=== PATIENT | male | born 1985 | race Caucasian/White ===

== ENCOUNTER 2017-11-20 13:16 | Emergency (ER) | payer MEDICAID ==
--- NOTE | 2017-11-20 13:57 | EDPHY ---
H & P Stated Complaint: SYMPTOMS, ABD PAIN, URINARY RETENTION Source: Patient, Old records Exam Limitations: Other - Personal History Current Tetanus Diphtheria and Acellular Pertussis (TDAP): Yes - Medical/Surgical History Other PMH: AUTISM, ASBERGERS, OCD,DEPRESSION, HEP C, SCAPHOID FX, O2 - Social History Smoking Status: Current every day smoker Time Seen by Provider: 11/20/17 13:50 HPI/ROS: HPI: This is a 32-year-old male who presents with Chief Complaint: SYMPTOMS, ABD PAIN, URINARY RETENTION Location: Left upper quadrant left lower quadrant Quality: Pain Duration: 3 hr prior to arrival Signs and Symptoms: no fever, no nausea, no vomiting, no hematemesis, no blood in stool, no abdominal bloating, no diarrhea, no back pain, no urinary symptoms , no testicular/groin pain, no indigestion, no chest pain, no shortness of breath Timing: Acute Severity: Severe Context: Patient has a history of autism and Asperger's with chronic use of Geodon and opiate medications presents with his attendant complaints of not urinating since 11:00 p.m. Yesterday evening as well as left upper quadrant left lower quadrant sudden onset of nonradiating moderate pain that started approximately 3 hr prior to arrival. Patient ate breakfast and lunch today without any difficulty. Denies fever/diarrhea/blood in stool/hematemesis/ dysuria/hematuria. Patient reports that he has a history of urinary retention but never followed up with Urology as patient only request female provider. Take stool softeners daily due to history of chronic constipation. History hemorrhoids. Patient reports that he was seen in the emergency room for acute urinary retention and given antibiotics that he only completed for a few days as it made him "sick." Patient reports that chronic use of Geodon has caused weight fluctuations. Modifying Factors: None Comment: ROS: see HPI Constitutional: No fever, no chills, no weight loss Eyes: No blurred vision Respiratory: No shortness of breath, no cough Cardiovascular: No chest pain, no palpitations Gastrointestinal: No nausea, no vomiting, no diarrhea, no hematemesis, no blood in stool Genitourinary: No dysuria, no blood in urine Extremities: No myalgias, no edema Neurologic: No weakness, no numbness Skin: No rashes, no petechiae Hematologic: No bruising, no bleeding MEDICAL/SURGICAL/SOCIAL HISTORY: Medical history: AUTISM, ASPERGER, OCD, DEPRESSION, HEP C, SCAPHOID FX, O2 Surgical history: Cholecystectomy Social history: Lives in [facility]. CONSTITUTIONAL: Extremely well-appearing polite and cooperative middle-aged white male, awake and alert, no obvious distress HEENT: Atraumatic and normocephalic, PERRL, EOMI. Tympanic membranes clear. Oropharynx clear, no exudate and moist pink mucosa. Airway patent. No lymphadenopathy. No meningismus. Cardiovascular: Normal S1/S2, regular rate, regular rhythm, without murmur rub or gallop. PULMONARY/CHEST: Symmetrical and nontender. Clear to auscultation bilaterally. Good air movement. No accessory muscle usage. ABDOMEN: Soft, protuberant, hypoactive bowel sounds heard x4 quadrants, nondistended, mild left upper quadrant mild left lower quadrant tenderness, no rebound, no guarding, no peritoneal signs, no masses or organomegaly. No CVAT. Male : circumcised penis, bilateral descended testes, no testicular swelling, no testicular masses, no penile discharge, no lesions, negative Prehn's sign. EXTREMITIES: 2/2 pulses, strength 5/5, no deformities, no clubbing, no cyanosis or edema. NEUROLOGICAL: no focal neuro deficits. GCS 15. SKIN: Warm and dry, no erythema. no rash. Good capillary refill. (Shantelle Thorne) Constitutional: Initial Vital Signs Temperature (C) 36.5 C 11/20/17 13:27 Heart Rate 92 11/20/17 13:27 Respiratory Rate 16 11/20/17 13:27 Blood Pressure 116/65 11/20/17 13:27 O2 Sat (%) 94 11/20/17 13:27 O2 Delivery Mode Room Air O2 (L/minute) 2 Allergies/Adverse Reactions: ciprofloxacin [From Cipro] Allergy (Verified 11/20/17 13:24) haloperidol [From Haldol] Allergy (Verified 11/20/17 13:24) linaclotide [From Linzess] Allergy (Verified 11/20/17 13:24) olanzapine [From Zyprexa] Allergy (Verified 11/20/17 13:24) ALLL NEW ANTIPSYCHOTICS Allergy (Uncoded 11/20/17 13:24) Home Medications: Medication Instructions Recorded Aleve 11/20/17 Cbd 11/20/17 Citalopram 11/20/17 Diazepam 11/20/17 Flexeril 10 MG (*) 11/20/17 Flomax 11/20/17 Geodon 11/20/17 Oxycodone Ir (*) 11/20/17 Protonix 11/20/17 Temazepam 11/20/17 Wellbutrin Sr 11/20/17 Medical Decision Making - Diagnostics Imaging Results: Imaging Impressions Abdomen CT 11/20/17 14:05 Impression: 1. Left inguinal peritoneal fat hernia. 2. Otherwise unremarkable. Results discussed with Shantelle Thorne. General information for patients regarding this examination can be found at [email or web address]. If you have questions or comments about this report, please contact me at (hospital) or [phone] (cell). ED Course/Re-evaluation: Labs, IV fluids, bladder scan, Pineda catheter, CT abdomen and pelvis scan ordered Vital signs reviewed and stable upon arrival Bladder scan shows greater than 500 cc; indwelling Pineda catheter inserted with immediate clear urine without sediment returned 1440: Notified by nursing that patient now complaining of continued abdominal pain and requesting pain medications. IV morphine 4 mg ordered Urinalysis reviewed and shows no signs infection, hematuria with normal specific gravity 1500: Labs reviewed; grossly unremarkable including Creatinine 0.9 1540: End of Shift. Signed over to Dr. Gallardo pending CT A/P scan results and final disposition. This patient was seen under the supervision of my secondary supervising physician. I evaluated care for this patient independently. Discussed this patient with Dr. Gallardo who did not see the patient. (Shantelle Thorne) This patient was seen and examined by me. Abd exam is benign. CT scan results are unremarkable, except for constipation, and were discussed with the patient and his caregiver. Magnesium citrate given. Will f/u PCP and urology. (Khadijah Gallardo) Differential Diagnosis: Abdominal pain including but not limited to appendicitis, cholecystitis, gastritis and urinary tract infection. (Shantelle Thorne) - Data Points Laboratory Results: Laboratory Results 11/20/17 14:20 11/20/17 14:20 11/20/17 11/20/17 11/20/17 14:20 14:20 14:08 WBC 7.40 10^3/uL 10^3/uL (3.80-9.50) RBC 5.05 10^6/uL 10^6/uL (4.40-6.38) Hgb 13.0 g/dL L g/dL (13.7-17.5) Hct 40.5 % % (40.0-51.0) MCV 80.2 fL L fL (81.5-99.8) MCH 25.7 pg L pg (27.9-34.1) MCHC 32.1 g/dL L g/dL (32.4-36.7) RDW 14.4 % % (11.5-15.2) Plt Count 283 10^3/uL 10^3/uL (150-400) MPV 9.4 fL fL (8.7-11.7) Neut % (Auto) 62.3 % % (39.3-74.2) Lymph % (Auto) 27.2 % % (15.0-45.0) Divide % (Auto) 8.1 % % (4.5-13.0) Eos % (Auto) 1.4 % % (0.6-7.6) Baso % (Auto) 0.5 % % (0.3-1.7) Nucleat RBC Rel Count 0.0 % % (0.0-0.2) Absolute Neuts (auto) 4.61 10^3/uL 10^3/uL (1.70-6.50) Absolute Lymphs (auto) 2.01 10^3/uL 10^3/uL (1.00-3.00) Absolute Monos (auto) 0.60 10^3/uL 10^3/uL (0.30-0.80) Absolute Eos (auto) 0.10 10^3/uL 10^3/uL (0.03-0.40) Absolute Basos (auto) 0.04 10^3/uL 10^3/uL (0.02-0.10) Absolute Nucleated RBC 0.00 10^3/uL 10^3/uL (0-0.01) Immature Gran % 0.5 % % (0.0-1.1) Immature Gran # 0.04 10^3/uL 10^3/uL (0.00-0.10) Sodium 140 mEq/L mEq/L (135-145) Potassium 4.5 mEq/L mEq/L (3.5-5.2) Chloride 103 mEq/L mEq/L (97-110) Carbon Dioxide 23 mEq/l mEq/l (22-31) Anion Gap 14 mEq/L mEq/L (8-16) BUN 10 mg/dL mg/dL (7-23) Creatinine 0.9 mg/dL mg/dL (0.7-1.3) Estimated GFR > 60 Glucose 80 mg/dL mg/dL (70-100) Calcium 9.1 mg/dL mg/dL (8.5-10.4) Total Bilirubin 0.5 mg/dL mg/dL (0.1-1.4) Conjugated Bilirubin 0.3 mg/dL mg/dL (0.0-0.5) Unconjugated Bilirubin 0.2 mg/dL mg/dL (0.0-1.1) AST 34 IU/L IU/L (17-59) ALT 62 IU/L IU/L (21-72) Alkaline Phosphatase 68 IU/L IU/L (38-126) Total Protein 7.6 g/dL g/dL (6.3-8.2) Albumin 4.4 g/dL g/dL (3.5-5.0) Lipase 66 IU/L IU/L (23-300) Urine Color COLORLESS Urine Appearance CLEAR Urine pH 7.0 (5.0-7.5) Ur Specific [place] 1.002 (1.002-1.030) Urine Protein NEGATIVE (NEGATIVE) Urine Ketones NEGATIVE (NEGATIVE) Urine Blood NEGATIVE (NEGATIVE) Urine Nitrate NEGATIVE (NEGATIVE) Urine Bilirubin NEGATIVE (NEGATIVE) Urine Urobilinogen NEGATIVE EU EU (0.2-1.0) Ur Leukocyte Esterase NEGATIVE (NEGATIVE) Urine Glucose NEGATIVE (NEGATIVE) Medications Given: Discontinued Medications Sodium Chloride (Ns) 1,000 mls @ 0 mls/hr IV EDNOW ONE; Wide Open PRN Reason: Protocol Stop: 11/20/17 14:06 Last Admin: 11/20/17 14:25 Dose: 1,000 mls Lidocaine (Uroject Lidocaine 2% Jelly) 20 ml UR EDNOW ONE Stop: 11/20/17 14:27 Last Admin: 11/20/17 14:30 Dose: 20 ml Morphine Sulfate (Morphine) 4 mg IVP EDNOW ONE Stop: 11/20/17 14:47 Last Admin: 11/20/17 15:12 Dose: 4 mg Departure - Departure Disposition: Home, Routine, Self-Care Clinical Impression: Acute urinary retention Constipation Qualifiers: Constipation type: drug induced constipation Qualified Code(s): K59.03 - Drug induced constipation Instructions: Magnesium Citrate (By mouth), Urinary Retention in Men (ED), Pineda Catheter Placement and Care (ED) Additional Instructions: Call Urology, Dr. Latoya Dutton, on Thursday for a follow-up appointment next week. Follow Pineda catheter precautions and care. Consume a minimum of 8-10 glasses of water or electrolyte fluid replacement drinks that include Gatorade, Powerade, Pedialyte. Eat a bland diet for the next 48 hours and then slowly advance as tolerated. Return to the ER immediately if you experience new, continued or worsening abdominal pain, fevers/chills, inability to tolerate oral intake, new pain, or any other symptoms that concern you. Referrals: Latoya Dutton MD [Medical Doctor] -
[2017-11-20] MEDS ORDERED: LIDOCAINE 2% JELLY 20 ML (UROJECT) ONE (14:00)
[2017-11-20] MEDS ORDERED: NS 1,000 ML IV ONE (14:05)
[2017-11-20] MEDS ORDERED: LIDOCAINE 2% JELLY 20 ML (UROJECT) UR ONE (14:26)
[2017-11-20 14:39] LABS: PLATELET COUNT 283 10^3/uL (150-400)
[2017-11-20] MEDS ORDERED: IOPAMIDOL (ISOVUE-300) 100 ML BTL ONE (15:15)
[2017-11-20] MEDS ORDERED: MAGNESIUM CITRATE 300 ML BOTTLE PO ONE (15:57)
[2017-11-20 16:10] VITALS: BP 147/106; PULSE 109; RESP 20; TEMP 98.6; O2SAT 95
== END 2017-11-20 16:13 | disposition home or self-care (01) ==
DX: K59.03 Drug induced constipation (principal); R33.9 Retention of urine, unspecified; T43.595A Adverse effect of other antipsychotics and neuroleptics, initial encounter; F17.200 Nicotine dependence, unspecified, uncomplicated; E86.9 Volume depletion, unspecified; Z90.49 Acquired absence of other specified parts of digestive tract
CPT/HCPCS: 96374; J2270; Q9967

== ENCOUNTER 2017-12-10 18:32 | Emergency (ER) | payer MEDICAID ==
[2017-12-10] MEDS ORDERED: KETAMINE 200 MG/20 ML VIAL IVP ONE ×2 (19:22→20:55)
--- NOTE | 2017-12-10 19:29 | EDPHY ---
H & P Stated Complaint: RUQ ABD PAIN/HX HEP C SEEN AT [facility] THEY FELT WAS R/T THC/ SO PT CAME HER Time Seen by Provider: 12/10/17 19:15 HPI/ROS: CHIEF COMPLAINT: Liver pain HISTORY OF PRESENT ILLNESS: Patient is a 32-year-old obese man with severe Asperger's who comes with his partner who cells CBD while to him stating that his liver is hurting. He states that this happens intermittently. CBD while is not working. He threw up the Phenergan he has at home. He was just at [facility] where he was given Reglan and Zofran and when he told mm not working they told him they thought that he had cannabis hyperemesis. He then got up and left and came here. He has not had a fever. No diarrhea. He has history of cholecystectomy. He was here 2 weeks ago with abdominal pain at that time had a CT scan that was unremarkable except for constipation and was given magnesium citrate. REVIEW OF SYSTEMS: Constitutional: denies: chills, fever, recent illness, recent injury EENTM: denies: blurred vision, double vision, nose congestion Respiratory: denies: cough, shortness of breath Cardiac: denies: chest pain, irregular heart rate, lightheadedness, palpitations Gastrointestinal/Abdominal: See HPI Genitourinary: denies: dysuria, frequency, hematuria, pain Musculoskeletal: denies: joint pain, muscle pain Skin: denies: lesions, rash, jaundice, bruising Neurological: denies: headache, numbness, paresthesia, tingling, dizziness, weakness Hematologic/Lymphatic: denies: blood clots, easy bleeding, easy bruising Immunologic/allergic: denies: HIV/AIDS, transplant EXAM: GENERAL: Obese, moderate distress. HEAD: Atraumatic, normocephalic. EYES: Pupils equal round and reactive to light, extraocular movements intact, sclera anicteric, conjunctiva are normal. ENT: TMs normal, nares patent, oropharynx clear without exudates. Moist mucous membranes. NECK: Normal range of motion, supple without lymphadenopathy or JVD. LUNGS: Breath sounds clear to auscultation bilaterally and equal. No wheezes rales or rhonchi. HEART: Regular rate and rhythm without murmurs, rubs or gallops. ABDOMEN: no tenderness, normoactive bowel sounds. No guarding, no rebound. No masses appreciated. BACK: No CVA tenderness, no spinal tenderness, step-offs or deformities EXTREMITIES: Normal range of motion, no pitting or edema. No clubbing or cyanosis. NEUROLOGICAL: Cranial nerves II through XII grossly intact. Normal speech, normal gait. 5/5 strength, normal movement in all extremities, normal sensation PSYCH: Normal mood, normal affect. SKIN: Warm, dry, normal turgor, no visible rashes or lesions. Source: Patient Exam Limitations: No limitations - Personal History Current Tetanus/Diphtheria Vaccine: Yes - Medical/Surgical History Hx Asthma: No Hx Chronic Respiratory Disease: No Hx Diabetes: No Hx Cardiac Disease: No Hx Renal Disease: Yes Hx Cirrhosis: No Hx Alcoholism: No Hx HIV/AIDS: No Hx Splenectomy or Spleen Trauma: No Other PMH: AUTISM, ASBERGERS, OCD,DEPRESSION, HEP C, SCAPHOID FX, O2 - Family History Significant Family History: No pertinent family hx - Social History Smoking Status: Current every day smoker Alcohol Use: None Constitutional: Initial Vital Signs Temperature (C) 37.1 C 12/10/17 18:47 Heart Rate 85 12/10/17 18:47 Respiratory Rate 17 12/10/17 18:47 Blood Pressure 139/83 H 12/10/17 18:47 O2 Sat (%) 93 12/10/17 18:47 O2 Delivery Mode Room Air Allergies/Adverse Reactions: haloperidol [From Haldol] Allergy (Verified 11/20/17 13:24) linaclotide [From Linzess] Allergy (Verified 11/20/17 13:24) olanzapine [From Zyprexa] Allergy (Verified 11/20/17 13:24) ALLL NEW ANTIPSYCHOTICS Allergy (Uncoded 11/20/17 13:24) CIPROHEPTADINE Allergy (Uncoded 12/10/17 18:45) Home Medications: Medication Instructions Recorded Aleve 11/20/17 Cbd 11/20/17 Citalopram 11/20/17 Diazepam 11/20/17 Flexeril 10 MG (*) 11/20/17 Flomax 11/20/17 Geodon 11/20/17 Oxycodone Ir (*) 11/20/17 Protonix 11/20/17 Temazepam 11/20/17 Wellbutrin Sr 11/20/17 Ativan 12/10/17 Citalopram 12/10/17 Compazine 10mg (*) 12/10/17 Phenergan 12/10/17 Zofran 12/10/17 Medical Decision Making ED Course/Re-evaluation: A few minutes after I left the room the patient began screaming and calling out for nurse. We all into the room and he began crying could not talk. His partner states that he is frustrated because he has not yet received pain medication. I have ordered ketamine but we discussed the fact that I will not give him narcotics because we are no narcotic ED. 7:50 p.m. the patient responded very well to the ketamine. He feels completely better. His partner came to the desk and thanked me. We will continue to observe to see if he needs repeat dosing. Ketamine is currently under shortage but this seemed to be a strong indication. He states that he refuses to take any psychiatric type medications. 8:35 p.m. the patient is still feeling better but is asking for catheter. He typically self caths. 8:55 p.m. The patient would like to go home. We will give him another dose of ketamine prior to leaving and observed. He has anti nausea and pain medication at home. Abdominal exam remains benign. Differential Diagnosis: Partial list of the Differential diagnosis considered include but were not limited to; chronic abdominal pain, hepatitis, cyclic vomiting, Asperger's syndrome, cannabis hyperemesis, drug-seeking and although unlikely based on the history and physical exam, I also considered ischemia, appendicitis. - Data Points Medications Given: Discontinued Medications Ketamine HCl (Ketamine) 24.5 mg 0.2 mg/kg (24.5 mg) IVP EDNOW ONE Stop: 12/10/17 19:23 Last Admin: 12/10/17 19:37 Dose: 24.5 mg Ketamine HCl (Ketamine) 24.5 mg 0.2 mg/kg (24.5 mg) IVP EDNOW ONE Stop: 12/10/17 20:56 Last Admin: 12/10/17 20:57 Dose: 24.5 mg Departure - Departure Disposition: Home, Routine, Self-Care Clinical Impression: Abdominal pain Qualifiers: Abdominal location: generalized Qualified Code(s): R10.84 - Generalized abdominal pain Condition: Fair Instructions: Acute Abdominal Pain (ED) Referrals: JEFFREY STEPHENSON [Other] - As per Instructions
[2017-12-10 21:04] VITALS: BP 128/77
== END 2017-12-10 21:03 | disposition home or self-care (01) ==
DX: R10.84 Generalized abdominal pain (principal); F17.200 Nicotine dependence, unspecified, uncomplicated
CPT/HCPCS: 96374

== ENCOUNTER 2018-01-20 18:24 | Emergency (ER) | payer MEDICAID ==
--- NOTE | 2018-01-20 18:45 | EDPHY ---
HPI/HX/ROS/PE/MDM Narrative: CHIEF COMPLAINT: Abdominal pain, nausea, vomiting HISTORY OF PRESENT ILLNESS: The patient is a 32 y/o male with a history of autism and hepatitis C complaining of abdominal pain, nausea, vomiting, and diarrhea. Around 1 month ago he had ARF secondary to obstruction, and now patient performs a self cathetization as needed. About a week ago he developed "kidney and liver pain". The liver pain is mildly alleviated by lying on his stomach. Around 3 days ago he began to have difficulty with the self catheter described as meeting resistance in the mid urethra. After self caths, his partner noticed blood on the end of the catheter as well as dark urine present. 3 days ago he also began to vomit around 3 times a day, which was mildly alleviated with Phenergan. His partner reports that the patient has had loose, dark stools with bright red blood present. He last received Tylenol 5 days ago in addition to his normal pain medications. No fever, chills, chest pain, shortness of breath, palpitations, headache, lightheadedness. REVIEW OF SYSTEMS: Aside from elements discussed in the HPI, a comprehensive 10-point review of systems was reviewed and is negative. PAST MEDICAL HISTORY: Autism, hepatitis C, dyspepsia, hemorrhoids, depression, OCD, scaphoid fracture SOCIAL HISTORY: Partner at bedside, lives in [place], admits to tobacco use VITAL SIGNS: Reviewed by me GENERAL: Lying with headphones on, well-developed, well-nourished, no respiratory distress. HEENT: Atraumatic. Eyes: No icterus, no injection. Mouth: moist mucous membranes. No erythema or lesions. Neck: supple with no adenopathy. LUNGS: Clear to auscultation bilaterally, no wheezes, rhonchi or rales. CARDIAC: Regular rate and rhythm, no rubs, murmurs or gallops. ABDOMEN: Right upper and mid quadrant tenderness. No palpable bladder. Soft, nondistended, bowel sounds normal. RECTAL: No hemorrhoids present. No stool present. BACK: Right CVA tenderness. EXTREMITIES: No trauma. No edema. Range of motion is normal throughout. NEURO: Alert and oriented, grossly nonfocal. SKIN: Warm and diaphoretic, no rash. PSYCHIATRIC: Normal mentation, no agitation. Portions of this note were transcribed by a manager of medical. I personally performed a history, physical exam, medical decision making, and confirmed accuracy of information the transcribed note. ED Course: The patient is a 32 y/o male with a history of autism and hepatitis C presenting with abdominal pain, nausea, vomiting, and diarrhea. He has also had difficulty with his self catheter for the past 3 days. On exam he has right upper and mid abdominal tenderness as well as right flank tenderness. Labs ordered and 1L IV NS administered. 1925: Patient is still in pain, 75mcg IV Fentanyl administered. 2008: Patient's pain has still not improved, 0.5mg IV Dilaudid administered. 2024: Patient's labs are essentially normal. No renal failure, no elevation in LFTs, urine without infection. Pineda cather placed without difficulty in ED. He is nauseous now; 12.5mg IV Phenergan administered. 2036: Reassessed patient and discussed follow up with gastroenterology and urology. I have prescribed him Flomax. Return precautions provided; patient is comfortable with this plan. MDM: Diff dx considered includind BPH, prostatits, urethritis, UTI, ARF, hepatitis, CI hemorrhage. - Data Points Laboratory Results: Laboratory Results 01/20/18 18:55 01/20/18 18:55 Medications Given: Discontinued Medications Fentanyl (Sublimaze) 75 mcg IVP EDNOW ONE Stop: 01/20/18 19:26 Last Admin: 01/20/18 19:33 Dose: 75 mcg Hydromorphone HCl (Dilaudid) 0.5 mg IVP EDNOW ONE Stop: 01/20/18 20:12 Last Admin: 01/20/18 20:15 Dose: 0.5 mg Sodium Chloride (Ns) 1,000 mls @ 0 mls/hr IV ONCE ONE; Wide Open PRN Reason: Protocol Stop: 01/20/18 19:03 Last Admin: 01/20/18 19:15 Dose: 1,000 mls Promethazine HCl (Phenergan) 12.5 mg IVP ONCE ONE Stop: 01/20/18 20:29 Last Admin: 01/20/18 20:32 Dose: 12.5 mg Promethazine HCl (Phenergan) 12.5 mg IVP EDNOW ONE Stop: 01/20/18 20:28 Last Admin: 01/20/18 20:35 Dose: Not Given General Time Seen by Provider: 01/20/18 18:42 Initial Vital Signs: Initial Vital Signs Temperature (C) 36.3 C 01/20/18 18:37 Heart Rate 82 01/20/18 18:37 Respiratory Rate 18 01/20/18 18:37 Blood Pressure 151/108 H 01/20/18 18:37 O2 Sat (%) 93 01/20/18 18:37 O2 Delivery Mode Room Air Allergies/Adverse Reactions: haloperidol [From Haldol] Allergy (Verified 01/21/18 06:48) ketamine Allergy (Verified 01/21/18 07:42) linaclotide [From Linzess] Allergy (Verified 01/21/18 06:48) olanzapine [From Zyprexa] Allergy (Verified 01/21/18 06:48) ALLL NEW ANTIPSYCHOTICS Allergy (Uncoded 01/21/18 06:48) CIPROHEPTADINE Allergy (Uncoded 01/21/18 06:48) Home Medications: Medication Instructions Recorded Aleve 11/20/17 Cbd 11/20/17 Citalopram 11/20/17 Diazepam 11/20/17 Flexeril 10 MG (*) 11/20/17 Geodon 11/20/17 Oxycodone Ir (*) 11/20/17 Protonix 11/20/17 Temazepam 11/20/17 Wellbutrin Sr 11/20/17 Ativan 12/10/17 Citalopram 12/10/17 Compazine 10mg (*) 12/10/17 Phenergan 12/10/17 Zofran 12/10/17 Departure - Departure Disposition: Home, Routine, Self-Care Clinical Impression: Abdominal pain Qualifiers: Abdominal location: right upper quadrant Qualified Code(s): R10.11 - Right upper quadrant pain Condition: Good Instructions: Acute Abdominal Pain (ED) Additional Instructions: Take Flomax as prescribed. Follow up with your resident care technician. Follow up with urology (Dr. Dutton) in the next week. Return to the emergency apartment for fever, severe pain, inability to urinate or other concerns. Referrals: JEFFREY STEPHENSON [Other] - As per Instructions Fanta Shell MD [Medical Doctor] - As per Instructions Latoya Dutton MD [Medical Doctor] - As per Instructions
[2018-01-20] MEDS ORDERED: NS 1,000 ML IV ONE (19:02)
[2018-01-20 19:12] LABS: PLATELET COUNT 364 10^3/uL (150-400)
[2018-01-20 19:20] LABS: INR 0.93 (0.83-1.16); PROTIME(PATIENT) 12.7 SEC (12.0-15.0)
[2018-01-20] MEDS ORDERED: fentaNYL 100 MCG/2 ML INJ IVP ONE (19:25)
[2018-01-20 19:39] LABS: CREATINE KINASE 45 IU/L (0-224)
[2018-01-20] MEDS ORDERED: HYDROmorphONE/DILAUDID 2 MG/ML INJ IVP ONE (20:11)
[2018-01-20] MEDS ORDERED: HYDROmorphONE/DILAUDID 1 MG/ML INJ ONE (20:14)
[2018-01-20] MEDS ORDERED: PROMETHAZINE HCL 25 MG/ML INJ IVP ONE ×2 (20:27→20:28)
[2018-01-20 20:54] VITALS: BP 150/78
== END 2018-01-20 21:00 | disposition home or self-care (01) ==
PROC: 0T9B70Z Drainage of Bladder with Drainage Device, Via Natural or Artificial Opening (ICD-10-PCS; principal; 2018-01-20)
DX: R33.9 Retention of urine, unspecified (principal); R10.11 Right upper quadrant pain; R11.2 Nausea with vomiting, unspecified; E86.9 Volume depletion, unspecified
CPT/HCPCS: 96374; J1170; J2550; J3010

== ENCOUNTER 2018-01-21 06:43 | Emergency (ER) | payer MEDICAID ==
[2018-01-21] MEDS ORDERED: NS 1,000 ML IV ONE (07:20)
[2018-01-21] MEDS ORDERED: PANTOPRAZOLE SODIUM 40 MG VIAL IVP ONE (07:20)
[2018-01-21] MEDS ORDERED: LORazepam 2 MG/ML INJ IVP ONE (07:20)
--- NOTE | 2018-01-21 07:20 | EDPHY ---
H & P Stated Complaint: abd pain and vomiting was seen yesterday Time Seen by Provider: 01/21/18 06:58 HPI/ROS: CHIEF COMPLAINT: Vomiting, abdominal pain HISTORY OF PRESENT ILLNESS: 32-year-old male with autism presents with recurrent vomiting and abdominal pain. He has a long history of episodic vomiting and abdominal pain, thought secondary to cyclic vomiting syndrome. Onset of typical symptoms yesterday, with recurrent vomiting and right upper quadrant pain. He was seen in this emergency department and given Dilaudid, Fentanyl and Phenergan IV with relief. He also has a h/o urinary retention and usually self caths at home. A salomon catheter was placed yesterday rui because of urinary retention. On the way home from the emergency department, he began vomiting again. He has been up all night with abdominal pain and vomiting. Associated with constipation and anxiety. Sometimes these episodes last for a few days, but typically last less than 24 hr. He has not taken his usual psychiatric medications in 2 days. Also unable to tolerate usual oxycodone because of vomiting. Requests d/c salomon catheter. REVIEW OF SYSTEMS: complete 10 point ROS negative except at noted in the HPI - Personal History Current Tetanus/Diphtheria Vaccine: Yes Current Tetanus Diphtheria and Acellular Pertussis (TDAP): Yes - Medical/Surgical History Hx Asthma: No Hx Chronic Respiratory Disease: No Hx Diabetes: No Hx Cardiac Disease: No Hx Renal Disease: Yes Hx Cirrhosis: No Hx Alcoholism: No Hx HIV/AIDS: No Hx Splenectomy or Spleen Trauma: No Other PMH: AUTISM, ASBERGERS, OCD,DEPRESSION, HEP C, SCAPHOID FX, O2 - Social History Smoking Status: Current every day smoker Alcohol Use: None Drug Use: None - Physical Exam Exam: General Appearance: Alert, anxious Eyes: Pupils equal and round, no conjunctival pallor or injection ENT, Mouth: Mucous membranes moist, excessive cerumen bilateral ear canals Neck: Normal inspection Respiratory: Lungs are clear to auscultation Cardiovascular: Regular rate and rhythm Gastrointestinal: Abdomen is soft, right upper quadrant tenderness Neurological: A&O, nonfocal exam Skin: Warm and dry Extremities: Normal inspection Psychiatric: anxious Constitutional: Initial Vital Signs Temperature (C) 37.2 C 01/21/18 06:45 Heart Rate 109 H 01/21/18 06:45 Respiratory Rate 16 01/21/18 06:45 Blood Pressure 145/75 H 01/21/18 06:45 O2 Sat (%) 91 L 01/21/18 06:45 O2 Delivery Mode Room Air Allergies/Adverse Reactions: haloperidol [From Haldol] Allergy (Verified 01/21/18 06:48) ketamine Allergy (Verified 01/21/18 07:42) linaclotide [From Linzess] Allergy (Verified 01/21/18 06:48) olanzapine [From Zyprexa] Allergy (Verified 01/21/18 06:48) ALLL NEW ANTIPSYCHOTICS Allergy (Uncoded 01/21/18 06:48) CIPROHEPTADINE Allergy (Uncoded 01/21/18 06:48) Home Medications: Medication Instructions Recorded Aleve 11/20/17 Cbd 11/20/17 Citalopram 11/20/17 Diazepam 11/20/17 Flexeril 10 MG (*) 11/20/17 Geodon 11/20/17 Oxycodone Ir (*) 11/20/17 Protonix 11/20/17 Temazepam 11/20/17 Wellbutrin Sr 11/20/17 Ativan 12/10/17 Citalopram 12/10/17 Compazine 10mg (*) 12/10/17 Phenergan 12/10/17 Zofran 12/10/17 Medical Decision Making ED Course/Re-evaluation: This patient presents with recurrent vomiting and abdominal pain. Clinical scenario consistent with cyclic vomiting syndrome. I do not suspect alternative etiology for his symptoms today. Ativan, Protonix and Phenergan IV given. He feels much better after these medications and nausea has resolved. However, he continues to have abdominal pain. Abdominal exam remains benign. Dilaudid 0.5 mg IV given. Asymptomatic after Dilaudid IV. Feels much better and wants to go home. Abdomen is soft and nontender. The Salomon catheter was removed at patient request. Abdominal pain precautions given. He will stay on a clear liquid diet today and gradually advance his diet as tolerated. Differential Diagnosis: Differential diagnosis includes though it is not limited to appendicitis, cholecystitis, diverticulitis, pyelonephritis, bowel perforation, small bowel obstruction. - Data Points Laboratory Results: Laboratory Results 01/21/18 07:30 01/21/18 07:30 01/21/18 01/21/18 07:30 07:30 WBC 15.52 10^3/uL H 10^3/uL (3.80-9.50) RBC 4.79 10^6/uL 10^6/uL (4.40-6.38) Hgb 12.3 g/dL L g/dL (13.7-17.5) Hct 37.5 % L % (40.0-51.0) MCV 78.3 fL L fL (81.5-99.8) MCH 25.7 pg L pg (27.9-34.1) MCHC 32.8 g/dL g/dL (32.4-36.7) RDW 14.6 % % (11.5-15.2) Plt Count 338 10^3/uL 10^3/uL (150-400) MPV 9.5 fL fL (8.7-11.7) Neut % (Auto) 84.6 % H % (39.3-74.2) Lymph % (Auto) 9.5 % L % (15.0-45.0) [place] % (Auto) 4.3 % L % (4.5-13.0) Eos % (Auto) 0.7 % % (0.6-7.6) Baso % (Auto) 0.1 % L % (0.3-1.7) Nucleat RBC Rel Count 0.0 % % (0.0-0.2) Absolute Neuts (auto) 13.12 10^3/uL H 10^3/uL (1.70-6.50) Absolute Lymphs (auto) 1.48 10^3/uL 10^3/uL (1.00-3.00) Absolute Monos (auto) 0.66 10^3/uL 10^3/uL (0.30-0.80) Absolute Eos (auto) 0.11 10^3/uL 10^3/uL (0.03-0.40) Absolute Basos (auto) 0.02 10^3/uL 10^3/uL (0.02-0.10) Absolute Nucleated RBC 0.00 10^3/uL 10^3/uL (0-0.01) Immature Gran % 0.8 % % (0.0-1.1) Immature Gran # 0.13 10^3/uL H 10^3/uL (0.00-0.10) Sodium 139 mEq/L mEq/L (135-145) Potassium 4.6 mEq/L mEq/L (3.3-5.0) Chloride 105 mEq/L mEq/L (97-110) Carbon Dioxide 20 mEq/l L mEq/l (22-31) Anion Gap 14 mEq/L mEq/L (8-16) BUN 7 mg/dL mg/dL (7-23) Creatinine 0.8 mg/dL mg/dL (0.7-1.3) Estimated GFR > 60 Glucose 99 mg/dL mg/dL (70-100) Calcium 9.7 mg/dL mg/dL (8.5-10.4) Total Bilirubin 0.6 mg/dL mg/dL (0.1-1.4) Conjugated Bilirubin 0.4 mg/dL mg/dL (0.0-0.5) Unconjugated Bilirubin 0.2 mg/dL mg/dL (0.0-1.1) AST 30 IU/L IU/L (17-59) ALT 41 IU/L IU/L (21-72) Alkaline Phosphatase 58 IU/L IU/L (38-126) Total Protein 7.5 g/dL g/dL (6.3-8.2) Albumin 4.4 g/dL g/dL (3.5-5.0) Lipase 50 IU/L IU/L (23-300) Medications Given: Discontinued Medications Hydromorphone HCl (Dilaudid) 0.5 mg IVP EDNOW ONE Stop: 01/21/18 08:41 Last Admin: 01/21/18 08:44 Dose: 0.5 mg Sodium Chloride (Ns) 1,000 mls @ 0 mls/hr IV EDNOW ONE; Wide Open PRN Reason: Protocol Stop: 01/21/18 07:21 Last Admin: 01/21/18 07:38 Dose: 1,000 mls Lorazepam (Ativan Injection) 1 mg IVP EDNOW ONE Stop: 01/21/18 07:21 Last Admin: 01/21/18 07:41 Dose: 1 mg Pantoprazole Sodium (Protonix) 80 mg IVP EDNOW ONE Stop: 01/21/18 07:21 Last Admin: 01/21/18 07:38 Dose: 80 mg Promethazine HCl (Phenergan) 12.5 mg IVP EDNOW ONE Stop: 01/21/18 07:26 Last Admin: 01/21/18 07:41 Dose: 12.5 mg Promethazine HCl (Phenergan) 12.5 mg IVP ONCE ONE Stop: 01/21/18 09:20 Last Admin: 01/21/18 09:25 Dose: 12.5 mg Departure - Departure Disposition: Home, Routine, Self-Care Clinical Impression: Cyclic vomiting syndrome Qualifiers: Vomiting Intractability: intractable Nausea presence: with nausea Qualified Code(s): G43.A1 - Cyclical vomiting, intractable Condition: Good Instructions: Cyclic Vomiting Syndrome (ED) Additional Instructions: 1. Clear liquids for 24 hours. 2. Advance diet as tolerated. I suggest the BRAT diet to start: bananas, rice, applesauce and toast. 3. Return for worsening symptoms, persistent vomiting, abdominal pain, any concerns. Referrals: JEFFREY STEPHENSON [Other] - As per Instructions
[2018-01-21] MEDS ORDERED: PROMETHAZINE HCL 25 MG/ML INJ IVP ONE ×2 (07:25→09:19)
[2018-01-21 07:37] LABS: PLATELET COUNT 338 10^3/uL (150-400)
[2018-01-21] MEDS ORDERED: HYDROmorphONE/DILAUDID 2 MG/ML INJ IVP ONE (08:40)
[2018-01-21] MEDS ORDERED: HYDROmorphONE/DILAUDID 1 MG/ML INJ ONE (08:42)
[2018-01-21] MEDS ORDERED: PROMETHAZINE HCL 25 MG/ML INJ ONE (09:16)
[2018-01-21 09:26] VITALS: BP 117/48
== END 2018-01-21 09:40 | disposition home or self-care (01) ==
DX: G43.A1 Cyclical vomiting, in migraine, intractable (principal); F17.200 Nicotine dependence, unspecified, uncomplicated; E86.9 Volume depletion, unspecified
CPT/HCPCS: 96374; J1170; J2060; J2550